=== PATIENT | female | born 1960 | race Caucasian/White ===

== ENCOUNTER 2018-05-24 18:35 | Observation (INO) | payer MEDICAID ==
[2018-05-24] MEDS ORDERED: ASPIRIN 81 MG CHEWABLE TABLET PO ONE (18:48)
[2018-05-24] MEDS ORDERED: NITROGLYCERIN 0.4MG SL TABLET #25 BTL SL PRN ×2 (18:48→19:35)
--- NOTE | 2018-05-24 18:51 | Emergency Department Record ---
History of Present Illness - General Chief Complaint: Chest Pain Stated Complaint: CHEST /LT ARM PAIN Time Seen by Provider: 05/24/18 18:38 Source: Patient Mode of Arrival: Ambulatory Limitations: No limitations - History of Present Illness Initial Comments: 57 yo female presents to ED for evaluation of chest discomfort symptoms for the past 4 days, worse with exertion. Patient describers the pain as substernal, radiating to the left upper extremity. Patient denies previous history of CAD, does report history of HTN and tobacco use, stopped smoking 2.5 years ago. Patient denies pain with deep inspiration, cough, or recent illness symptoms. MD Complaint: Chest pain Onset/Timin -: Days(s) Onset: During exertion Pain Location: Substernal Pain Radiation: LUE Severity: Moderate Quality: Aching Consistency: Constant Improves With: Rest Worsens With: Exertion Treatments Prior to Arrival: None - Related Data On Oral Contraceptives: No Allergies Allergy/AdvReac Type Severity Reaction Status Date / Time No Known Drug Allergies Allergy Verified 05/24/18 18:49 Review of Systems Constitutional: Denies: Chills, Malaise, Night sweats Eyes: Denies: Eye discharge, Eye pain ENT: Denies: Congestion, Ear pain, Epistaxis Respiratory: Denies: Cough, Dyspnea Cardiovascular: Reports: Chest pain. Denies: Dyspnea on exertion Endocrine: Denies: Fatigue, Heat or cold intolerance Gastrointestinal: Denies: Abdominal pain, Nausea, Vomiting Genitourinary: Denies: Incontinence, Retention Musculoskeletal: Denies: Arthralgia, Back pain Skin: Denies: Bruising, Change in color Neurological: Denies: Abnormal gait, Confusion, Headache, Seizure Psychiatric: Denies: Anxiety Hematological/Lymphatic: Denies: Anemia, Blood Clots Past Medical History - SOCIAL HISTORY Smoking Status: Current every day smoker - RESPIRATORY Hx Respiratory Disorders: No - CARDIOVASCULAR Hx Cardio Disorders: Yes Hx Cardiac Cath: Yes Hx Hypertension: Yes - NEURO Hx Neuro Disorders: No - GI Hx GI Disorders: Yes Hx Reflux: Yes - Hx Genitourinary Disorders: No - ENDOCRINE Hx Endocrine Disorders: No - MUSCULOSKELETAL Hx Musculoskeletal Disorders: Yes Comment:: carpal tunnel- R - PSYCH Hx Psych Problems: No - HEMATOLOGY/ONCOLOGY Hx Hematology/Oncology Disorders: No Family Medical History Hx Heart Disease: Mother Hx HTN: Mother Physical Exam - General General Appearance: Alert, Oriented x3, Cooperative, Mild distress Limitations: No limitations - Head Head exam: Atraumatic, Normocephalic, Normal inspection Head exam detail: negative: Abrasion, Contusion, Hill's sign, General tenderness, Hematoma, Laceration - Eye Eye exam: Normal appearance. negative: Conjunctival injection, Periorbital swelling, Periorbital tenderness, Scleral icterus - ENT Ear exam: negative: Auricular hematoma, Auricular trauma Nasal Exam: negative: Active bleeding, Discharge, Dried blood, Foreign body Mouth exam: negative: Drooling, Laceration, Muffled voice, Tongue elevation - Neck Neck exam: Normal inspection. negative: Meningismus, Tenderness - Respiratory Respiratory exam: Normal lung sounds bilaterally. negative: Rales, Respiratory distress, Rhonchi, Stridor - Cardiovascular Cardiovascular Exam: Regular rate, Normal rhythm, Normal heart sounds - GI/Abdominal GI/Abdominal exam: Soft. negative: Rebound, Rigid, Tenderness - Rectal Rectal exam: Deferred - exam: Deferred - Extremities Extremities exam: Normal inspection. negative: Calf tenderness, Pedal edema, Tenderness - Back Back exam: Denies: CVA tenderness (R), CVA tenderness (L) - Neurological Neurological exam: Alert, Normal gait, Oriented X3 - Psychiatric Psychiatric exam: Normal affect, Normal mood - Skin Skin exam: Normal color. negative: Abrasion Type of lesion: negative: abrasion Course - Reevaluation(s) Reevaluation #1: 05/24/18 18:51 EKG: NSR 88 Normal axis, normal intervals No acute ST-T wave changes Reevaluation #2: 05/24/18 19:26 Laboratory studies were reviewed and are grossly unremarkable for an acute process. CXR: No acute process. Patient was updated on all results, reports that she is resting pain-free at this time. Due to the patient's age and risk factors, will admit for serial Troponins and stress testing likely tomorrow. Case was discussed with Trice Lee (Admitting TEAM ASSEMBLER), agrees with the plan of care as discussed. Medical Decision Making - Lab Data Result diagrams: 05/24/18 18:52 05/24/18 18:52 Disposition Disposition: Admit Clinical Impression: Chest pain Qualifiers: Chest pain type: unspecified Qualified Code(s): R07.9 - Chest pain, unspecified Disposition: Still a Patient at [facility] Decision to Admit: Admit from ER Decision to Admit Date: 05/24/18 Decision to Admit Time: 19:29 Condition: (2) Stable Forms: Patient Portal Access Time of Disposition: 19:29 Quality - Quality Measures Quality Measures: N/A - Blood Pressure Screening Does Patient Have Any of the Following: No Blood Pressure Classification: Pre-Hypertensive BP Reading Systolic Measurement: 143 Diastolic Measurement: 86 Screening for High Blood Pressure: < Pre-Hypertensive BP, F/U Documented > [ G8950] Pre-Hypertensive Follow-up Interventions: Referral to alternative/primary care provider.
[2018-05-24 18:58] LABS: BASO % 0.3 % (0-6); EOS % 1.6 % (0-6); GRAN % 50.9 % (47-80); HEMATOCRIT 42.9 % (35.0-47.0); HEMOGLOBIN 14.2 gm/dl (11.6-16.0); MEAN CORPUSCULAR HEMOGLOBIN 28.1 pg (27-33); MEAN CORPUSCULAR HGB CONC 33.1 g/dl (32-36); MEAN PLATELET VOLUME 9.4 fl (7.4-10.4); MONO % 6.2 % (0-9); PLATELET COUNT 271 K/uL (130-400); RED BLOOD COUNT 5.05 M/uL (3.80-5.40); RED CELL DISTRIBUTION WIDTH 12.8 % (11.5-14.5); WHITE BLOOD COUNT W/O DIFF 6.4 K/uL (4.2-12.2)
[2018-05-24 19:07] LABS: BLOOD UREA NITROGEN 19 mg/dL (6-20); CREATININE 0.6 mg/dL (0.5-0.9); EST GLOMERULAR FILTRATION RATE > 60 mL/min
[2018-05-24 19:08] LABS: TOTAL PROTEIN 8.3 g/dL (6.6-8.7)
[2018-05-24 19:10] LABS: GLUCOSE,RANDOM 107 mg/dL (74-109)
[2018-05-24 19:12] LABS: ALT/SGPT 9 U/L (<33)
[2018-05-24 19:13] LABS: ALB/GLOB RATIO 1.3 (1.1-1.8); ALBUMIN 4.7 g/dL (4.0-5.0); ALKALINE PHOSPHATASE 115 U/L (45-87); AST/SGOT 17 U/L (10.0-35.0)
[2018-05-24] MEDS ORDERED: 0.9 % SODIUM CHLORIDE 1000ML 1,000 ML IV PRN (19:35)
[2018-05-24] MEDS ORDERED: LISINOPRIL 10 MG TABLET PO SCH (19:35)
[2018-05-24] MEDS: METOPROLOL TART 50 MG TABLET PO SCH (21:33)
[2018-05-24] MEDS: HYDROCHLOROTHIAZIDE 12.5 MG CAPSULE PO SCH (21:35)
[2018-05-24] MEDS ORDERED: CYCLOBENZAPRINE 10MG TABLET PO SCH (22:00)
--- NOTE | 2018-05-25 05:02 | RADIOLOGY REPORT ---
EXAM: CHEST, TWO VIEWS HISTORY: CHEST PAIN SINCE PROSPER NOT GOING AWAY. TECHNIQUE: PA and lateral views of the chest were obtained. Comparison: None. FINDINGS: The heart size is normal. No definite acute infiltrate seen. No pleural effusion or pneumothorax evident. Mild torsion of the aorta. IMPRESSION: MILD TORSION OF THE AORTA. NO ACUTE INFILTRATE IDENTIFIED. JOB NUMBER: [id number] MTDD
[2018-05-25] MEDS: PANTOPRAZOLE SODIUM 40 MG TABLET PO SCH (06:06)
[2018-05-25] MEDS: HYDROCHLOROTHIAZIDE 12.5 MG CAPSULE PO SCH (09:57)
[2018-05-25] MEDS: METOPROLOL TART 50 MG TABLET PO SCH ×2 (09:57→21:55)
[2018-05-25] MEDS ORDERED: CYCLOBENZAPRINE 10MG TABLET PO PRN (10:30)
--- NOTE | 2018-05-25 12:49 | History & Physical ---
History of Present Illness - Date of Service Date of Service for History & Physical: 05/25/18 - History of Present Illness Admitting Diagnosis: Chest pain History of Present Illness: PMHx: CAD, HTN, Former Smoker (2.5 years ago) ED course: Pt presented to the ED yesterday for CP (described as tightness) x 4 days on exertion that radiates to the L arm. Never had similar symptoms in the past. No Family hx of [place]. Vitals: T afebrile, P 95, BP 143/86, 94% on RA Labs: trop negative x 1, CBC and CMP wnl except alk phos 115 EKG: NSR CXR: Negative for acute findings. Admitted for serial trops and stress testing given high risk history. Today: Pt denies any CP, she states that she isn't active and that is why it is not present. She Denies SOB, nausea, vomiting, edema, MORA, diarrhea, constipation , trauma to the area, recent strenuous activity, palpitations. She states that she did see cardiology in [place] in the past for palpitations in 2008 and was put on BP medication and has not had palpitations since. She also states at that time she had a cath done and "a blockage was found in my leg". She has not seen cardiology since then. Travel Screening - Travel/Exposure Within Last 30 Days Have you traveled within the last 30 days?: No - Travel/Exposure Within Last Year Have you traveled outside the [place] in the last year?: No - Additonal Travel Details Have you been exposed to anyone with a communicable illness?: No - Travel Symptoms Symptom Screening: None Review of Systems Constitutional: Denies: Chills, Malaise, Night sweats Eyes: Denies: Eye discharge, Eye pain ENT: Denies: Congestion, Ear pain, Epistaxis Respiratory: Denies: Cough, Dyspnea, Wheezes Cardiovascular: Reports: Chest pain. Denies: Dyspnea on exertion Endocrine: Denies: Fatigue, Heat or cold intolerance Gastrointestinal: Denies: Abdominal pain, Constipation, Diarrhea, Nausea, Vomiting Genitourinary: Denies: Incontinence, Retention Musculoskeletal: Denies: Arthralgia, Back pain Skin: Denies: Bruising, Change in color, Rash Neurological: Denies: Abnormal gait, Confusion, Headache, Seizure Psychiatric: Denies: Anxiety Hematological/Lymphatic: Denies: Anemia, Blood Clots Past Medical History - SOCIAL HISTORY Smoking Status: Former smoker Alcohol Use: None Drug Use: None - RESPIRATORY Hx Respiratory Disorders: No - CARDIOVASCULAR Hx Cardio Disorders: Yes Hx Cardiac Cath: Yes Hx Hypertension: Yes - NEURO Hx Neuro Disorders: No - GI Hx GI Disorders: Yes Hx Reflux: Yes - Hx Genitourinary Disorders: No - ENDOCRINE Hx Endocrine Disorders: No - MUSCULOSKELETAL Hx Musculoskeletal Disorders: Yes Comment:: carpal tunnel- R - PSYCH Hx Psych Problems: No - HEMATOLOGY/ONCOLOGY Hx Hematology/Oncology Disorders: No Family Medical History Any Significant Family History?: Yes Hx Heart Disease: Mother Hx HTN: Mother H&P Meds/Allergies - Allergies Allergies: Allergies Allergy/AdvReac Type Severity Reaction Status Date / Time No Known Drug Allergies Allergy Verified 05/24/18 18:49 - Active Medications Active Medications: Current Medications Aspirin (Aspirin Chewable) 81 mg PO QHS [facility] Cyclobenzaprine HCl (Flexeril) 10 mg PO TID PRN PRN Reason: JAW TIGHTNESS Hydrochlorothiazide (Hctz 12.5mg) 12.5 mg PO DAILY [facility] Last Admin: 05/25/18 09:57 Dose: 12.5 mg Sodium Chloride () 1,000 mls @ 15 mls/hr IV .Q24H PRN PRN Reason: LARGE VOLUME IV Lisinopril (Zestril) 10 mg PO QHS [facility] Metoprolol Tartrate (Lopressor) 50 mg PO BID [facility] Last Admin: 05/25/18 09:57 Dose: 50 mg Nitroglycerin (Nitrostat 0.4mg) 0.4 mg SL Q5MIN PRN PRN Reason: CHEST PAIN Pantoprazole Sodium (Protonix) 40 mg PO DAILYAC [facility] Last Admin: 05/25/18 06:06 Dose: 40 mg Physical Exam - Vital Signs Vital Signs: Vital Signs - Last 24 Hrs Temp Pulse Pulse Pulse Resp BP BP 05/25/18 09:00 84 89 18 05/25/18 08:00 97.8 F 89 18 120/72 05/24/18 20:30 84 16 05/24/18 20:16 98.2 F 79 16 143/83 05/24/18 19:56 82 20 05/24/18 18:40 97.9 F 95 H 26 H 143/86 BP Pulse Ox 05/25/18 09:00 05/25/18 08:00 93 L 05/24/18 20:30 05/24/18 20:16 100 05/24/18 19:56 118/59 94 L 05/24/18 18:40 94 L - General General Appearance: Alert, Oriented x3, Cooperative, No acute distress Limitations: No limitations - Head Head exam: Atraumatic, Normocephalic, Normal inspection Head exam detail: negative: Abrasion, Contusion, Hill's sign, General tenderness, Hematoma, Laceration - Eye Eye exam: Normal appearance. negative: Conjunctival injection, Periorbital swelling, Periorbital tenderness, Scleral icterus - ENT ENT exam: Normal exam Ear exam: negative: Auricular hematoma, Auricular trauma Nasal Exam: negative: Active bleeding, Discharge, Dried blood, Foreign body Mouth exam: negative: Drooling, Laceration, Muffled voice, Tongue elevation - Neck Neck exam: Normal inspection. negative: Meningismus, Tenderness - Respiratory Respiratory exam: Normal lung sounds bilaterally. negative: Rales, Respiratory distress, Rhonchi, Stridor - Cardiovascular Cardiovascular Exam: Regular rate, Normal rhythm, Normal heart sounds - GI/Abdominal GI/Abdominal exam: Soft, Normal bowel sounds. negative: Rebound, Rigid, Tenderness - Rectal Rectal exam: Deferred - exam: Deferred - Extremities Extremities exam: Normal inspection. negative: Calf tenderness, Pedal edema, Tenderness - Back Back exam: Reports: Normal inspection - Neurological Neurological exam: Alert, Oriented X3 - Psychiatric Psychiatric exam: Normal affect, Normal mood - Skin Skin exam: Normal color. negative: Abrasion Type of lesion: negative: abrasion Results - Labs Result Diagrams: 05/24/18 18:52 05/24/18 18:52 Labs Last 24 Hours: Laboratory Results - last 24 hr 05/24/18 05/24/18 05/25/18 18:52 18:52 02:30 WBC 6.4 RBC 5.05 Hgb 14.2 Hct 42.9 MCV 85.0 MCH 28.1 MCHC 33.1 RDW 12.8 Plt Count 271 MPV 9.4 Gran % 50.9 Lymphocytes % 41.0 Monocytes % 6.2 Eosinophils % 1.6 Basophils % 0.3 Sodium 140 Potassium 4.1 Chloride 101 Carbon Dioxide 25.0 Anion Gap 14.0 BUN 19 Creatinine 0.6 Estimated GFR > 60 Random Glucose 107 Calcium 9.9 Total Bilirubin 0.40 AST 17 ALT 9 Alkaline Phosphatase 115 H Troponin T < 0.010 < 0.010 Total Protein 8.3 Albumin 4.7 Globulin 3.6 Albumin/Globulin Ratio 1.3 05/25/18 10:32 WBC RBC Hgb Hct MCV MCH MCHC RDW Plt Count MPV Gran % Lymphocytes % Monocytes % Eosinophils % Basophils % Sodium Potassium Chloride Carbon Dioxide Anion Gap BUN Creatinine Estimated GFR Random Glucose Calcium Total Bilirubin AST ALT Alkaline Phosphatase Troponin T < 0.010 Total Protein Albumin Globulin Albumin/Globulin Ratio VTE H&P Assessment - Risk for VTE Risk for VTE: Yes Risk Level: Moderate Risk Assessment Date: 05/25/18 Risk Assessment Time: 12:58 VTE Orders Placed or Will Be Placed: Yes Plan - Detailed Diagnosis and Plan (1) Chest pain Current Visit: Yes Status: Acute Qualifiers: Chest pain type: unspecified Qualified Code(s): R07.9 - Chest pain, unspecified Base Code: R07.9 - CHEST PAIN, UNSPECIFIED Priority: High Comment: - Trop neg x 3 - Will do stress test given that she has high risk history. - Cardio c/s'd - Nitroglycerin and O2 PRN. (2) HTN (hypertension) Current Visit: Yes Status: Chronic Qualifiers: Hypertension type: essential hypertension Qualified Code(s): I10 - Essential (primary) hypertension Base Code: I10 - ESSENTIAL (PRIMARY) HYPERTENSION Priority: Medium Comment: - Take home medications as prescibed. (3) Venous thromboembolism (VTE) prophylaxis provided within 24 hours of arrival Current Visit: Yes Status: Acute Base Code: [id number] - Priority: Medium Comment: - Low -> Mod risk given age and BMI - SCD's in bed ordered. - Disposition Home pending cardio recs.
[2018-05-25] MEDS ORDERED: LISINOPRIL 10 MG TABLET PO SCH (22:00)
[2018-05-25] MEDS ORDERED: ASPIRIN 81 MG CHEWABLE TABLET PO SCH (22:00)
[2018-05-26] MEDS: PANTOPRAZOLE SODIUM 40 MG TABLET PO SCH (06:26)
[2018-05-26] MEDS: METOPROLOL TART 50 MG TABLET PO SCH (09:31)
[2018-05-26] MEDS: HYDROCHLOROTHIAZIDE 12.5 MG CAPSULE PO SCH (09:31)
--- NOTE | 2018-05-26 12:12 | Discharge Summary ---
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 negative: Conjunctival injection, Periorbital swelling, Periorbital tenderness, Scleral icterus - ENT ENT exam: Normal exam Ear exam: negative: Auricular hematoma, Auricular trauma Nasal Exam: negative: Active bleeding, Discharge, Dried blood, Foreign body Mouth exam: negative: Drooling, Laceration, Muffled voice, Tongue elevation - Neck Neck exam: Normal inspection. negative: Meningismus, Tenderness - Respiratory Respiratory exam: Normal lung sounds bilaterally. negative: Rales, Respiratory distress, Rhonchi, Stridor - Cardiovascular Cardiovascular Exam: Regular rate, Normal rhythm, Normal heart sounds - GI/Abdominal GI/Abdominal exam: Soft, Normal bowel sounds. negative: Rebound, Rigid, Tenderness - Rectal Rectal exam: Deferred - exam: Deferred - Extremities Extremities exam: Normal inspection. negative: Calf tenderness, Pedal edema, Tenderness - Back Back exam: Reports: Normal inspection - Neurological Neurological exam: Alert, Oriented X3 - Psychiatric Psychiatric exam: Normal affect, Normal mood - Skin Skin exam: Normal color. negative: Abrasion Type of lesion: negative: abrasion Hospitalization - Hospitalization Admission Diagnosis: Chest pain - Problem List/Discharge Diagnosis (1) Chest pain Status: Acute Discharge Diagnosis: Chest pain type: unspecified Qualified Code(s): R07.9 - Chest pain, unspecified Base Code: R07.9 - CHEST PAIN, UNSPECIFIED Comment: - Trop neg x 3 - Stress test negative. - D-dimer mildly elevated but CT negative for PE - Nitroglycerin and O2 PRN. (2) HTN (hypertension) Status: Chronic Discharge Diagnosis: Hypertension type: essential hypertension Qualified Code(s): I10 - Essential (primary) hypertension Base Code: I10 - ESSENTIAL (PRIMARY) HYPERTENSION Comment: - Take home medications as prescibed. (3) Venous thromboembolism (VTE) prophylaxis provided within 24 hours of arrival Status: Acute Base Code: [id number] - Comment: - Low -> Mod risk given age and BMI - SCD's in bed ordered. - Disposition Home pending cardio recs. - Hospitalization Course Disposition: Home, Self-Care Hospital Course: PMHx: CAD, HTN, Former Smoker (2.5 years ago) ED course: Pt presented to the ED yesterday for CP (described as tightness) x 4 days on exertion that radiates to the L arm. Never had similar symptoms in the past. No Family hx of [place]. Pt denies any CP, she states that she isn't active and that is why it is not present. She Denies SOB, nausea, vomiting, edema, MORA, diarrhea, constipation, trauma to the area, recent strenuous activity, palpitations. She states that she did see cardiology in [place] in the past for palpitations in 2008 and was put on BP medication and has not had palpitations since. She also states at that time she had a cath done and "a blockage was found in my leg". She has not seen cardiology since then. Vitals: T afebrile, P 95, BP 143/86, 94% on RA Labs: trop negative x 1, CBC and CMP wnl except alk phos 115 EKG: NSR CXR: Negative for acute findings. Admitted for serial trops and stress testing given high risk history. Hospital course: Trop x 3 negative. Stress test did not find any changes on EKG. D-dimer slightly elevated, chest CT negative for PE. Calcification seen in breast and liver on CT to be followed up by PCP - discussed with pt. Mark cardio to call pt to schedule f/u. 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 Abnormal Labs: Abnormal Lab Results 05/24/18 05/25/18 Range/Units 18:52 10:32 D-Dimer 0.72 H (0-0.59) mg/L FEU Alkaline Phosphatase 115 H (45-87) U/L Condition at Discharge: (2) Stable Discharge Medications - Discharge Medications Home Medications: Ambulatory Orders Aspirin Chewable 81 mg PO QHS 03/13/15 [Last Taken 05/23/18 23:00] Metoprolol Tartrate [Lopressor] 50 mg PO BID 03/13/15 [Last Taken 05/24/18 08:00 ] Omeprazole Magnesium [Prilosec Otc] 20 mg PO DAILY 03/13/15 [Last Taken 08:00] Cyclobenzaprine HCl 10 mg PO TID PRN tab 01/29/17 [Last Taken Unknown] Hydrochlorothiazide [Hctz] 12.5 mg PO QD tab 01/29/17 [Last Taken 05/24/18 08: 00] Lisinopril 10 mg PO QHS tab 01/29/17 [Last Taken 05/23/18 23:00] Discharge Plan - Discharge Instructions Activity at Discharge: Increase Activity as Tolerated Diet at Discharge: Regular Diet Instructions: Chest Pain (DC) Additional Instructions: 2 Activity: Increase Activity as Tolerated 2 Diet: Regular Diet 2 Consults: [] 2 Follow Up: [] 2 Dressing/Wound Care: (Type) (Change) 2 Additional: [] Get a Mammogram done as soon as you can to evaluate the calcification in your breast. Get a physical done with your primary care provider. There is a calcification also in your liver which should be compared to previous images or monitored by your primary care provider. Call [facility] [phone] to schedule a follow up appointment with Dr. Vasquez if they do not call you in the next 2 days. Quality Measures - Quality Measures Quality Measures: Documentation of Current Medications in Medical Record, Screening for High Blood Pressure and F/U Documented - Current Medications Quality Measure: Measure #130: Documentation of Current Medications Documentation of Current Medications: <Current Medications Documented/Reviewed> [G8427] - Blood Pressure Screening Quality Measure: Screening for High Blood Pressure and Follow-Up Documented Does Patient Have Any of the Following: Active Dx of HTN Blood Pressure Classification: Pre-Hypertensive BP Reading Systolic Measurement: 143 Diastolic Measurement: 86 Screening for High Blood Pressure: Patient Exclusion, Hx of HTN [G9744] - Elder Abuse Suspicion Index EASI Reference Information: Rommel SANABRIA, Levy C, Tabitha D, Hortencia Ruiz.Development and validation of a tool to assist physicians identification of elder abuse: The Elder Abuse Suspicion Index (EASI ). Journal of Elder Abuse and Neglect, 2008; 20 (3): 276-300.
--- NOTE | 2018-05-26 12:51 | CT ANGIOGRAM REPORT ---
EXAM: CTA OF THE CHEST FOR PE WITH POST PROCESSING HISTORY: ELEVATED D-DIMER, INCREASED HEART RATE, CHEST PAIN, POSSIBLE PE. TECHNIQUE: CTA of the chest was performed following the intravenous administration of iodated contrast media. Post processing on an independent workstation was performed with multiple 3D MIP series obtained. Please see the medical record for IV contrast specifics. Comparison: No prior chest CT. Comparison is made with the two view chest x- ray dated 05/24/18. FINDINGS: NO definite PE identified. There is some ectasia of the ascending aorta measuring up to about 3.6 cm in size. A small amount of coronary artery calcification is evident as well. No pleural or pericardial effusion evident. Borderline enlarged precarinal lymph node about 10.5 mm in maximum short axis. This may just be reactive. Some calcification in the anterior aspect of the liver near the junction of the medial segment left lobe and anterior segment right lobe. No obvious associated mass is seen and the significance of this is uncertain although is perhaps related to prior injury or infection. Comparison with any prior abdomen CT scans would be useful to confirm a chronic stable appearance. There appears to be a relatively rounded mass in the right breast with some peripheral calcification measuring approximately 1.4 cm in diameter. This is presumably a partially calcified cyst although correlation with physical exam and mammography is suggested. No pneumothorax evident. Tiny bullae throughout the lungs consistent with emphysema. Some dependent atelectasis posteriorly in the lungs. IMPRESSION: 1. NO DEFINITE PE IDENTIFIED. 2. SOME ECTASIA OF THE ASCENDING AORTA. 3. EMPHYSEMA. 4. SOME CALCIFICATION ANTERIORLY IN THE LIVER WITH NO OBVIOUS ASSOCIATED MASS. THIS MAY BE POST INFLAMMATORY OR DUE TO OLD INJURY, BUT RECOMMEND COMPARISON WITH PRIOR CT SCANS THAT INCLUDE THE LIVER. 5. APPROXIMATELY 1.4 CM ROUNDED MASS RIGHT BREAST WITH SOME PERIPHERAL CALCIFICATION. THIS MAY BE A PARTIALLY CALCIFIED BREAST CYST, BUT RECOMMEND CORRELATION WITH PHYSICAL EXAM AND MAMMOGRAPHY. JOB NUMBER: [id number] [facility]
--- NOTE | 2018-05-26 22:03 | Cardiology Consult ---
DATE OF CONSULTATION: 05/25/2018 CHIEF COMPLAINT: CHEST PAIN. HISTORY OF PRESENT ILLNESS: Ms. Javier is a very pleasant 57-year-old female with past medical history of hypertension, hyperlipidemia, and former tobacco abuse. She smoked one-half to one pack per day for 25 years and quit approximately 5 years ago. She saw a [facility] in 2008, when she had a left heart catheterization performed. She reports that there was not any significant CAD. She denies any previous intervention. She does report a history of a "blockage in her leg". She is unsure of the details but thinks they may have opened it with a balloon or a stent. She has no known history of diabetes, CAD, CVA/TIA, DVT/PE. She denies significant family history of CAD. She states that her mother from CHF. She denies any previous stress testing. She denies any previous echocardiogram. She has not been seen by a [facility] [employer] since 2008. She presented to [facility] on 05/24/18 with complaints of chest pain. 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 She first noticed the chest pain when she was cleaning on Thursday. It was substernal and pressure- like. It radiated to her left arm. She denies any associated shortness of breath , nausea, vomiting, diaphoresis, palpitations, lightheadedness, or dizziness. Since then, the pain has been intermittent but aggravated with activity and alleviated with rest. On occasion, the pain does occur with rest. Her EKG on admission demonstrated normal sinus rhythm with normal axis and intervals. No acute ST or T-wave changes. Her troponin has been negative x3. Her blood pressure has been well controlled. Her chest x-ray did not suggest any acute cardiopulmonary process. Since admission, she has been chest pain free. At home , she takes Aspirin 81 mg daily, Hydrochlorothiazide 12.5 mg daily, Lisinopril 10 mg daily, and Lopressor 50 mg b.i.d. She is intolerant to statins due myalgias. ALLERGIES: NO KNOWN DRUG ALLERGIES. MEDICATIONS: Aspirin 81 mg daily Hydrochlorothiazide 12.5 mg daily Lisinopril 10 mg daily Lopressor 50 mg b.i.d. Protonix 40 mg daily AC PAST MEDICAL HISTORY: Hypertension, hyperlipidemia, possible PAD, former tobacco abuse. SOCIAL HISTORY: Former tobacco abuse, denies significant alcohol use, denies illicit drug use. FAMILY HISTORY: Mother, CHF. REVIEW OF SYSTEMS: CONSTITUTIONAL: No fevers, chills, sweats, lightheadedness, dizziness, syncope. EYE: No recent visual problems. ENMT: No ear pain, nasal congestion, sore throat. RESPIRATORY: No shortness of breath, cough. CARDIOVASCULAR: Complaining of chest pain. No shortness of breath, palpitations , PND, orthopnea, or syncope. PERIPHERAL VASCULAR: No peripheral edema, claudication. GASTROINTESTINAL: No nausea, vomiting, diarrhea. MUSCULOSKELETAL: No back pain, neck pain, joint pain, muscle pain, decreased range of motion. INTEGUMENTARY: No rash, pruritus, abrasions. NEUROLOGIC: Alert and oriented x4. PSYCHIATRIC: No anxiety or depression. PHYSICAL EXAM: VITAL SIGNS: Blood pressure 143/83 mmHg. Pulse 79 beats per minute. Temperature 98.2 degrees Fahrenheit. Respiratory rate 16 per minute. SPO2 100% on room air. BMI 33.3. GENERAL: Alert and oriented, well nourished, in no acute distress. HEAD: Normocephalic, atraumatic. ENT: EOMI, PERRL. No scleral icterus, erythema. Throat free from erythema, lesions. NECK: Supple, nontender, no carotid bruits, no JVD. RESPIRATORY: Clear to auscultation, nonlabored respiration, no wheezing, rhonchi , rales. CARDIAC: Regular rate and rhythm. No murmurs, rubs, or gallops. PERIPHERAL VASCULAR: No peripheral edema. No cyanosis, clubbing. Peripheral pulses 2+. ABDOMEN: Soft, nontender, nondistended, normal bowel sounds. SKIN: Skin is warm, dry, and pink. No rashes or lesions. MUSCULOSKELETAL: Normal range of motion of all four extremities. Normal gait. NEUROLOGIC: Awake, alert, and oriented x3. PSYCHIATRIC: Cooperative, appropriate mood and affect. LABS: CBC: Hemoglobin is 14.2. Hematocrit 42.9. WBC 6.4. Platelets 271. BMP: Sodium 140. Potassium 4.1. Chloride 101. CO2 25. BUN 19. Creatinine 0.6. Glucose 107. Troponin negative x3. IMAGING: Chest X-ray: No acute cardiopulmonary process. Mild torsion of the aorta. EKG: Sinus rhythm with normal axis and intervals. No acute EKG changes. ASSESSMENT AND PLAN: CHEST PAIN: The patient is a 57-year old female with risk factors for CAD including hypertension, hyperlipidemia, former tobacco abuse, and possible history of PAD. In 2008, she had a left heart catheterization, which was reportedly normal. Around that time, she was told she had a blockage in her leg. She is unsure of the details but thinks it was fixed with either a stent or a balloon. She has not seen a [facility] [employer] [facility] since 2008 and denies any recent stress testing or echocardiogram. She presented to [facility] with complaints of exertional chest pain since Thursday. The pain is pressure- like and substernal with radiation to the left arm. The pain does sometimes occur at rest. She denies any other associated symptoms. Her EKG on admission demonstrated sinus rhythm with normal axis and intervals and no acute ST or T- wave changes. Troponin has been negative x3. CBC and BMP are unremarkable. Chest x-ray did not suggest any acute pathology. She underwent basic treadmill stress testing this afternoon. The results were reviewed to Dr. Willoughby. She exercised for 3 minutes and achieved 4.6 METS. One PVC was noted but no other arrhythmia. Her resting heart rate was elevated in the 110's. She reached a peak heart rate of 156. There were no ST or T-wave changes concerning for ischemia. At this time, no further cardiac testing is needed. Would recommend a D-dimer with possible CTA to rule out pulmonary embolism, given her symptoms of chest pain and her elevated resting heart rate. Will plan to follow-up with her in the office with an echocardiogram in the next 2 to 3 weeks. JOB NUMBER: [id number] [facility]
--- NOTE | 2018-05-26 22:27 | Stress Test Report ---
DATE OF TEST: 05/25/2018 Ms. Javier is 57 years old, who underwent a Treadmill Stress Test for chest pain. Her resting ECG demonstrated sinus tachycardia at a rate of 113 beats per minute with normal axis and intervals. Her resting blood pressure was 122/92. She exercised for 3 minutes per the Lawson protocol and completed 5 METS of activity. Her maximum heart rate was 157, which is 96% of age-predicted maximal heart rate. Peak blood pressure was 138/91. Continuous ECG monitoring demonstrated no ST/T changes suggestive of ischemia. A rare PVC was noted. FINAL IMPRESSION: 1. ASYMPTOMATIC MAXIMAL LAWSON STRESS COMPLETING 5 METS WITH NO ECG EVIDENCE FOR ISCHEMIA. A SINGLE PVC WAS RECORDED. 2. NORMAL BLOOD PRESSURE RESPONSE TO EXERCISE. 3. POOR PHYSICAL FITNESS FOR AGE. [facility]: [id number] [facility]
== END 2018-05-26 12:50 | disposition home or self-care (01) ==
LOC: ER 18:35 → MEDSURG 20:00
PROVIDERS: ADMIT Internal Medicine; ATTEND Internal Medicine
DX: R07.9 Chest pain, unspecified (principal); I10 Essential (primary) hypertension; M25.512 Pain in left shoulder; K21.9 Gastro-esophageal reflux disease without esophagitis; Z95.811 Presence of heart assist device; Z87.891 Personal history of nicotine dependence
CPT/HCPCS: 71046; 71275; 80053; 84484; 85025; 85379; 93005; 93010; 93017; 99217; 99220; 99285